=== PATIENT | female | born 1965 | race African-American/Black ===

== ENCOUNTER → 2016-06-07 | Outpatient (CLI) | payer BC ==
[~2016-06-07] MED LIST: ACID REFLUX PILL; ALLERGY PILL
--- NOTE | ~2016-06-07 | US98 ---
[facility] A Service of [facility] / [facility] RADIOLOGY TEXT RESULTS PATIENT: PATRIA JON LOCATION: [facility] : 69 UNIT #: [id number] AGE: [address]: Edson Milian MD SEX: F ORDER DR: [id number] [facility] [address] [place], [place] [address] [id number] MR#: [id number] Acc #: [id number] NAME: PATRIA JON : 1965 SEX: F STUDY DATE/TIME: 06/07/2016 16:26 UNIT: [facility] ROOM: STUDY DESCRIPTION: US Pelvic Non-OB Complete Attending Physician: Edson Milian M.D. Ordering Physician: Edsno Milian M.D. Primary Care Physician: Edson Milian M.D. MEDICAL IMAGING REPORT This report is preliminary unless electronic signature is present EXAM Pelvic ultrasound 06/07/2016 INDICATIONS Pelvic pressure since March of this year. Status post partial hysterectomy. TECHNIQUE Transabdominal and transvaginal imaging is performed of the pelvis in multiple planes. Transvaginal imaging performed for better evaluation of the adnexal structures. COMPARISON STUDIES No comparison. FINDINGS Uterus is surgically absent. There is a left ovarian cyst measuring about 2.8 cm in greatest dimension. There is a dominant right ovarian cyst measuring about 1.7 cm in greatest dimension. Both ovaries show perfusion by Doppler. No adnexal masses. IMPRESSION Bilateral ovarian cysts. Status post hysterectomy. Otherwise negative. Dictated by... Cheng Hollis Jr., M.D. THIS IS AN ELECTRONICALLY VERIFIED REPORT Cheng Hollis Jr., M.D. at 06/10/2016 10:30 PM JOSEPH/rachel TD: 06/10/2016 18:39 JOB #: [id number] [facility] A Service of [facility] / [facility] RADIOLOGY TEXT RESULTS PATIENT: PATRIA JON LOCATION: [facility] : 69 UNIT #: [id number] AGE: [address]: Edson Milian MD SEX: F ORDER DR: MEDICAL IMAGING REPORT COPY
== END | disposition home or self-care (01) ==
LOC: CWCC 16:13
DX: N76.0 Acute vaginitis (principal); N83.202 Unspecified ovarian cyst, left side; N83.201 Unspecified ovarian cyst, right side; Z90.711 Acquired absence of uterus with remaining cervical stump
CPT/HCPCS: 76830; 76856

== ENCOUNTER → 2016-08-30 | Day surgery (SDC) | payer BC ==
--- NOTE | ~2016-08-30 | OR ---
Unit #: [id number] #: [id number] Patient: PATRIA JON [id number] [address] [address] [id number] O MR#: [id number] NAME: PATRIA JON ROOM: Date of Procedure: 08/30/2016 Admission Date: 08/30/2016 Surgeon: Michael Urbano M.D. : 1965 Attending Physician: Michael Urbano M.D. Primary Care Physician: Edson Milian M.D. PROCEDURE OPERATIVE NOTE PROCEDURE PERFORMED EGD with biopsies. INDICATION Patient with history of chronic GERD, atypical chest pain, undergoing evaluation with upper endoscopy. MEDICATION Monitored anesthesia. POSTOP FINDINGS 1. Small hiatal hernia, no esophagitis, strictures or rings. 2. Chronic appearing diffuse gastritis, biopsies taken. 3. Normal duodenum (1) . PLAN Continue PPI therapy and reflux precautions. Followup on pathology report. DESCRIPTION OF PROCEDURE The patient was explained the procedure, risks, and benefits along with risks and benefits of anesthesia. She was brought to the endoscopy room. Propofol anesthesia was given. Bite block was placed. The scope was passed down the mouth into the esophagus, stomach, duodenum, and distal duodenum. Findings as described. Biopsies taken. Gently, I pulled the scope out of patient's mouth. She tolerated it well. Dictated by... Ike Torres/dipesh TD: 08/30/2016 09:32 JOB #: [id number] Unit #: [id number] #: [id number] Patient: PATRIA JON PROCEDURE OPERATIVE NOTE Page 1 of 1 X Michael Urbano MD X PROCEDURE OPERATIVE NOTE
== END | disposition home or self-care (01) ==
LOC: COPS 05:30
DX: K29.50 Unspecified chronic gastritis without bleeding (principal); K44.9 Diaphragmatic hernia without obstruction or gangrene; K21.9 Gastro-esophageal reflux disease without esophagitis; Z88.0 Allergy status to penicillin; Z88.8 Allergy status to other drugs, medicaments and biological substances; Z90.710 Acquired absence of both cervix and uterus
CPT/HCPCS: 88305; 88312; J2250